=== PATIENT | female | born 1985 | race African-American/Black ===

== ENCOUNTER 2017-10-16 22:28 | Emergency (ER) | payer OTHER ==
[~2017-10-16] VITALS: Ht 162.6 cm; Wt 108.0 kg
[~2017-10-16 22:28] MED LIST: ALBU8HFA IH
[2017-10-17 00:31] LABS: INFLUENZA TYPE A POSITIVE FOR TYPE A (NEGATIVE); INFLUENZA TYPE B NEGATIVE FOR TYPE B (NEGATIVE)
[2017-10-17 00:40] VITALS: BP 128/89
== END 2017-10-17 01:24 | disposition home or self-care (01) ==
LOC: EMS 22:30
DX: J40 Bronchitis, not specified as acute or chronic (principal); J06.9 Acute upper respiratory infection, unspecified; N39.0 Urinary tract infection, site not specified; J09.X2 Influenza due to identified novel influenza A virus with other respiratory manifestations; M79.1 Myalgia; Z88.6 Allergy status to analgesic agent
CPT/HCPCS: 87804; 99284